=== PATIENT | male | born 1965 | race Caucasian/White ===

== ENCOUNTER 2018-01-23 18:58 | Emergency (ER) | payer BC ==
[2018-01-23 19:02] VITALS: BP 110/78
[2018-01-23] MEDS ORDERED: FLUORESCEIN SOD/BENOXINATE HCL 20 DROPS/ML OPHT.BTL OP ONE (19:22)
--- NOTE | 2018-01-23 19:25 | EDPHY ---
H & P Time Seen by Provider: 01/23/18 19:20 HPI/ROS: CHIEF COMPLAINT: Foreign body sensation right eye HISTORY OF PRESENT ILLNESS: 52-year-old male with corrective glasses states that last evening while he was camping wind picked up and felt just enter his right eye. He irrigated his eye but notes continued foreign body sensation. Denies exposure to high speed projectiles. No visual acuity changes. No pain with extraocular movements. Tetanus up-to-date PHYSICAL EXAM (Prior to examination, patient consented to physical exam, hands were washed and my usual and customary physical exam procedures followed) 1) GENERAL: Well-developed, well-nourished, alert and oriented. Appears to be in no acute distress. 2) HEAD: Normocephalic 3) ENT: no facial lesions. 4) LUNGS: Breathing comfortably. [5) OCULAR EXAM: Visual Acuity: OS 20/15, OD 20/25, OU 20/15 Pupils:equal round and reactive to light EOMI Lids: no edema or swelling, upper and lower lids were everted and no foreign bodies were visualized, no areas of increased fluorescein uptake. Skin: no proptosis, no periorbital erythema or swelling, no vesicles, no pain with extraocular movements. Conjunctivae: not injected, no discharge, negative Ruby test. Cornea: exam with fluorescein shows area of increased uptake at the 11 o'clock position consistent with corneal abrasion. Anterior chamber:normal, no hyphema or hypopyon Smoking Status: Never smoked Constitutional: Initial Vital Signs Temperature (C) 36.6 C 01/23/18 19:00 Heart Rate 79 01/23/18 19:00 Respiratory Rate 16 01/23/18 19:00 Blood Pressure 110/78 01/23/18 19:00 O2 Sat (%) 96 01/23/18 19:00 O2 Delivery Mode Room Air Allergies/Adverse Reactions: No Known Allergies Allergy (Verified 01/23/18 19:01) Home Medications: Medication Instructions Recorded NK [No Known Home Meds] 01/23/18 MDM/Departure - MDM ED Course/Re-evaluation: Patient's corneal abrasion at the 11 o'clock position. Recommend follow up with Ophthalmology, started on prophylactic antibiotics. He declines analgesia. Tetanus is already up-to-date. No evidence of periorbital or orbital cellulitis. Doubt intraorbital foreign body or globe rupture. I saw this patient independently based on established practice protocols. Care of patient under supervision of secondary supervising physician Dr Ontiveros . - Depart Disposition: Home, Routine, Self-Care Clinical Impression: Right corneal abrasion Qualifiers: Encounter type: initial encounter Qualified Code(s): S05.01XA - Injury of conjunctiva and corneal abrasion without foreign body, right eye, initial encounter Condition: Good Instructions: Corneal Abrasion (ED), Ofloxacin (Into the eye) Additional Instructions: Return to the ER if you develop worsening pain, if you develop pain with eye movements or any other symptoms that concern you. Referrals: Evaristo Sims MD [Medical Doctor] - As per Instructions
[2018-01-23] MEDS ORDERED: OFLOXACIN 0.3% SOLN PREPACK OPHT.BTL TAKEHOME ONE (19:39)
== END 2018-01-23 19:56 | disposition home or self-care (01) ==
DX: S05.01XA Injury of conjunctiva and corneal abrasion without foreign body, right eye, initial encounter (principal); X58.XXXA Exposure to other specified factors, initial encounter; Y92.833 Campsite as the place of occurrence of the external cause; Y99.8 Other external cause status; Y93.89 Activity, other specified